=== PATIENT | female | born 1950 | race Caucasian/White ===

== ENCOUNTER 2017-06-16 06:43 | Emergency (ER) | payer OTHER ==
[~2017-06-16] VITALS: Ht 157.5 cm; Wt 55.1 kg
[~2017-06-16 06:43] MED LIST: 1-ME1LIQ PO; ACIDTAB4 OR; ALEN70TA39 PO; ALPR0.25 PO; BUPR150XL PO; CIPR500T2 PO; ESTR2TAB PO; LORT5TAB PO; METR-1 PO; MEVA40TA PO; SERT100 PO; TETR250C3 PO
[2017-06-16 06:51] VITALS: BP 194/85; PULSE 84; RESP 20; TEMP 97.5; O2SAT 95
[2017-06-16] MEDS ORDERED: ESTR1TAB PO (07:04)
[2017-06-16] MEDS ORDERED: LEVO.075 PO (07:04)
[2017-06-16] MEDS ORDERED: FISH500C PO (07:04)
[2017-06-16] MEDS ORDERED: ALEN1TAB48 PO (07:04)
[2017-06-16] MEDS ORDERED: SERT-129 PO (07:04)
[2017-06-16] MEDS ORDERED: LOVA40TA PO (07:04)
[2017-06-16] MEDS ORDERED: LOSA50TA PO (07:04)
[2017-06-16] MEDS ORDERED: ALPR0.25 PO (07:04)
[2017-06-16 07:31] VITALS: BP 166/84; PULSE 73; RESP 18; O2SAT 96
[2017-06-16] MEDS ORDERED: POLY17S PO (07:41)
[2017-06-16] MEDS ORDERED: MAGNSOL2 PO (07:44)
--- NOTE | 2017-06-16 07:46 | PD ---
HPI Chief Complaint: GI Complaint Time Seen by Provider: 07:12 Travel History International Travel<30 days: No Contact w/Intl Traveler<30days: No Traveled to known affect area: No History of Present Illness HPI 67 yo F c/o constipation x 2 days. + Flatus. Tolerate oral hydration/food. Daily Fiber One did not help. Miralax twice last night made no difference. No fever/chills. No n/v. + Similar prior history resolved after PFSH Past Medical History Autoimmune Disease: No Blood Disorders: No Anxiety: Yes Depression: Yes Cancer: No Cardiovascular Problems: Yes High Cholesterol: Yes Diminished Hearing: No Endocrine: No Gastrointestinal Disorders: Yes Genitourinary: No Hypertension: Yes Immune Disorder: No Musculoskeletal: No Neurologic: No Psychiatric: No Reproductive: No Respiratory: No Immunizations Current: Yes Influenza Vaccination: Yes ?: Not Menopausal: Yes Dilation and Curettage (D&C): Yes Past Surgical History Gynecologic Surgery: Yes Hysterectomy: Yes Tonsillectomy: Yes Other Surgery: Yes (HAFSA MMR, ABDOMINOPLASTY, SEPTOPLASTY) Social History Alcohol Use: Yes (OCCASSIONAL) Tobacco Use: No Substance Use: No Allergies-Medications (Allergen,Severity, Reaction): Coded Allergies: benazepril (Unverified Allergy, Mild, rash, 06/16/17) Reported Meds & Prescriptions Reported Meds & Active Scripts Active Magnesium Citrate Liq (Magnesium Citrate) 300 Ml Liq 300 Ml PO ONCE Polyethylene Glycol 3350 Powder (Polyethylene Glycol) 17 Gram Pow 17 Gm PO Q2HR Reported Fish Oil ([place]-3 Fatty Acids) 60 Mg-90 Mg-500 Mg Cap 1 Tab PO DAILY Synthroid (Levothyroxine Sodium) 75 Mcg Tab 75 Mcg PO DAILY Alprazolam 0.25 Mg Tab 0.25 Mg PO Q8H PRN Sertraline (Sertraline HCl) 100 Mg Tab 100 Mg PO DAILY Lovastatin 40 Mg Tab 40 Mg PO DAILY Alendronate (Alendronate Sodium) 70 Mg Tab 70 Mg PO Q7D Losartan (Losartan Potassium) 50 Mg Tab 50 Mg PO DAILY Estradiol 1 Mg Tab 1 Mg PO DAILY Review of Systems Except as stated in HPI: all other systems reviewed are Neg General / Constitutional: No: Fever Cardiovascular: No: Chest Pain or Discomfort Physical Exam Narrative GENERAL: wnwd 67 yo F, NAD RECTAL: Minimal brown stool, no impaction. No mass, hemorrhoids, fissure or fistula SKIN: Warm and dry. HEAD: Atraumatic. Normocephalic. EYES: Pupils equal and round. No scleral icterus. No injection or drainage. ENT: No nasal bleeding or discharge. Mucous membranes pink and moist. NECK: Trachea midline. No JVD. CARDIOVASCULAR: Regular rate and rhythm. RESPIRATORY: No accessory muscle use. Clear to auscultation. Breath sounds equal bilaterally. GASTROINTESTINAL: Abdomen soft, non-tender, nondistended. Hepatic and splenic margins not palpable. MUSCULOSKELETAL: Extremities without clubbing, cyanosis, or edema. No obvious deformities. NEUROLOGICAL: Awake and alert. No obvious cranial nerve deficits. Motor grossly within normal limits. Five out of 5 muscle strength in the arms and legs. Normal speech. PSYCHIATRIC: Appropriate mood and affect; insight and judgment normal. Data Data Last Documented VS Vital Signs Date Time Temp Pulse Resp B/P (MAP) Pulse Ox O2 Delivery O2 Flow Rate FiO2 06/16/17 07:55 06/16/17 07:31 73 18 96 Room Air 06/16/17 06:51 97.5 Vital Signs Date Time Temp Pulse Resp B/P (MAP) Pulse Ox O2 Delivery O2 Flow Rate FiO2 06/16/17 07:55 06/16/17 07:31 73 18 166/84 (111) 96 Room Air 06/16/17 06:51 97.5 84 20 194/85 (121) 95 Orders Orders Ed Discharge Order (06/16/17 07:48) MDM Medical Decision Making Medical Screen Exam Complete: Yes Emergency Medical Condition: Yes Differential Diagnosis obstruction, constipation, colon cancer Narrative Course Pt has minimal stool in vault. No obstruction. Magnesium citrate script and additional script for extra miralax Pt has follow up with dr Sanchez in four weeks with colonoscopy scheduled Presentation considered to be relatively benign constipation likely amenable to basic pharmacologic interventions. Diagnosis Primary Impression: Constipation Qualified Codes: K59.00 - Constipation, unspecified Referrals: Marisol Moore MD (PCP) call for appointment Patient Instructions: General Instructions, Constipation (ED) Departure Forms: Tests/Procedures Scripts Magnesium Citrate Liq (Magnesium Citrate Liq) 300 Ml Liq 300 ML PO ONCE, #1 BOTTLE 0 Refills Prov: Rakesh Lemons MD 06/16/17 Polyethylene Glycol 3350 Powder (Polyethylene Glycol 3350 Powder) 17 Gram Pow 17 GM PO Q2HR for Constipation, #5 BOTTLE 0 Refills Prov: Rakesh Lemons MD 06/16/17 Disposition: 01 DISCHARGE HOME Condition: Stable Rakesh Lemons MD Jun 16, 2017 07:46
== END 2017-06-16 07:56 | disposition home or self-care (01) ==
LOC: PHED 06:43
DX: K59.00 Constipation, unspecified (principal); E78.00 Pure hypercholesterolemia, unspecified; I10 Essential (primary) hypertension
CPT/HCPCS: 99284

== ENCOUNTER 2017-06-17 00:02 | Emergency (ER) | payer OTHER ==
[~2017-06-17 00:02] MED LIST changes: -1-ME1LIQ PO; -ACIDTAB4 OR; +ALEN1TAB48 PO; -ALEN70TA39 PO; -BUPR150XL PO; -CIPR500T2 PO; +ESTR1TAB PO; -ESTR2TAB PO; +FISH500C PO; +LEVO.075 PO; -LORT5TAB PO; +LOSA50TA PO; +LOVA40TA PO; +MAGNSOL2 PO; -METR-1 PO; -MEVA40TA PO; +POLY17S PO; +SERT-129 PO; -SERT100 PO; -TETR250C3 PO
== END 2017-06-17 00:32 | disposition left against medical advice (07) ==
LOC: PHED 00:02
DX: R10.9 Unspecified abdominal pain (principal); R11.0 Nausea; R42 Dizziness and giddiness; Z53.21 Procedure and treatment not carried out due to patient leaving prior to being seen by health care provider